=== PATIENT | female | born 1950 ===

== ENCOUNTER 2021-11-18 07:54 | Day surgery (SDC) | payer OTHER ==
[~2021-11-18] VITALS: Ht 144.8 cm; Wt 61.2 kg
[~2021-11-18 07:54] MED LIST: CLONAZEPAM0.5 MG PO; EVISTA60 MG PO; PROTONIX20 MG PO; RESTORIL7.5 MG PO; SIMVASTATIN5 MG PO; WELLBUTRIN SR100 MG PO
[2021-11-18] MEDS ORDERED: TYLENOL325 MG PO (10:07)
== END 2021-11-18 12:55 | disposition home or self-care (01) ==
LOC: CIR.AMB 07:54
PROVIDERS: ATTEND Obstetrics & Gynecology Gynecology
DX: N84.0 Polyp of corpus uteri (principal); Z88.6 Allergy status to analgesic agent; Z88.0 Allergy status to penicillin